=== PATIENT | female | born 1980 | race Caucasian/White ===

== ENCOUNTER 2018-01-24 19:27 | Emergency (ER) | payer OTHER, SELFPAY ==
[2018-01-24 19:33] VITALS: BP 150/82; TEMP 37; O2SAT 99
--- NOTE | 2018-01-24 19:37 | DI.CT_ITS ---
SYMPTOM/DIAGNOSIS: LT TEMPORAL HEMATOMA, FELL ON ICE, HIT HEAD, VOMITING, SHORT TERM MEMORY LOSS NONCONTRAST HEAD CT: A noncontrast cranial CT was performed. The ventricular system is normal in appearance. There is no evidence of intracranial mass effect. A couple of small high density foci are noted in the basal ganglia on the right, these have maximal Hounsfield measurements of about 73 Hounsfield units, consistent with low density calcification versus hemorrhage. No other evidence of acute intracranial hemorrhage is seen. No calvarial fracture. Paranasal sinuses and mastoid air cells appear clear as visualized. The orbital and temporal bone structures appear intact. CONCLUSION: Indeterminate finding in right basal ganglia, calcification versus hemorrhage. Additional evaluation with MRI should be considered to rule out acute intracranial hemorrhage.
--- NOTE | 2018-01-24 19:39 | W.ED.GENAD ---
Discharge Plan Disposition Patient Disposition: HOME Condition: Good Discharge Details Chief Complaint: HeadInjury Clinical Impression: Concussion, Fall Primary Care Provider: Cheryle Young ED Provider: Parker Kohler Home Meds and New Rx's Prescriptions: No Action tsatlxkaibn-mfkhnlreb-jax C-Mn [Glucosamine-Chondroitin Complx] 1 EACH capsule 2 ea PO DAILY RF: 0 vitamin N66-pxrmo acid 1 EACH tablet 1 ea PO DAILY RF: 0 sertraline [Zoloft] 50 MG tablet 50 mg PO DAILY Qty: 90 RF: 4 levothyroxine 88 MCG tablet 88 mcg PO DAILY Qty: 90 RF: 3 budesonide [Pulmicort Flexhaler] 180 MCG aerosol powdr breath activated 360 mcg Inhalation BID 30 Days Qty: 1 RF: 5 levalbuterol tartrate [Xopenex HFA] 1 PUFF HFA aerosol inhaler 2 puff Inhalation Q6H PRN PRN (Reason: Asthma) Qty: 200 RF: 0 Discharge Instructions Instructions: Concussion (ED) Additional Instructions: Please take Tylenol and Motrin as needed for pain. If you notice any vision changes, worsening headache, or dizziness please return immediately. If you notice any worsening of your symptoms, or any new symptoms such as vomiting, diarrhea, fever, chills, shortness of breath, chest pain, numbness, weakness, or fainting , please return immediately to the emergency department for reevaluation. Please follow up with your primary care provider as soon as possible for reassessment and reevaluation. As always, it was a pleasure participating in your medical care today. 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 Patient was on ice when she slipped and hit her left head. Questionable loss of consciousness. Since then she has had a notable headache. Physical exam demonstrates no significant neurologic deficits. Notable hematoma over the left temporal bone. No other red flags on physical exam. Due to the location of the hematoma, the patient's notable pain, and her notable initial symptoms of confusion, and headache we did discuss CT imaging. We discussed the risks and benefits of imaging, and through shared decision making process we will get a CT scan to rule out any acute process. I feel that she is most likely suffering from a concussion, and if CT scan does return negative I feel she can be safely discharged home. 8:23pm CT scan results have returned demonstrates no evidence of acute or cranial process of fracture. The patient is feeling much better at this time. I feel she is suffering from a notable concussion. I feel that she can be safely discharged home, however we had a long discussion regarding red flags for which to immediately return the patient understands. I have extensively reviewed the treatment plan and discharge instructions with the patient and their family. I have addressed all patient concerns at this time. The patient and family was made aware of what symptoms to monitor for that would warrant a return to the emergency department. Discussed the plan with the patient and family, they demonstrate verbal understanding and agreement with our assessment and plan at this time. FINDINGS: Brain: Unremarkable. No hemorrhage. No significant white matter disease. No edema. Ventricles: Unremarkable. No ventriculomegaly. Bones/joints: Unremarkable. No acute fracture. Sinuses: Normal as visualized. No acute sinusitis. Mastoid air cells: Normal as visualized. No mastoid effusion. Soft tissues: Unremarkable. IMPRESSION: Normal examination. HPI General Date/Time Provider Initiated Documentation: 01/24/18 19:28. HPI Narrative: This is a 37-year-old female with a past medical history of thyroid disease, anxiety and depression who is on no blood thinners who presents today for evaluation of fall. Patient states that she was ice skating, slipped and landed hit her left head. She recalls the event but is uncertain if she had a brief loss of consciousness. She was notably confused after the initial fall, however the confusion has improved but she is now developed a notable left-sided headache and hematoma. Patient states that she initially had some blurry vision, and saw funny spots, but denies any dark curtain, eye pain, or blackness in her vision. She states that the symptoms have completely resolved at this point. She also had some initial ringing in her left ear, however this too is resolved. Patient has not taken any Tylenol or Motrin for the alleviation of the pain. She denies any aggravating or modifying factors. She denies any nosebleeds, neck pain, chest pain, or upper extremity pain. She denies any other complaints at this time. Related Data Home Medications Medication Instructions Recorded Confirmed levalbuterol tartrate [Xopenex Hfa] 2 puff INHALATION Q6H PRN PRN #200 11/13/12 01/24/18 inh pogpztiqgzz-rrjxitecc-lfs C-Mn 2 ea PO DAILY 10/07/13 01/24/18 [Glucosamine-Chondroitin Cap] vitamin V04-kigof acid 1 ea PO DAILY 10/07/13 01/24/18 sertraline [Zoloft] 50 mg PO DAILY #90 tab-cap 02/05/17 01/24/18 levothyroxine 88 mcg PO DAILY #90 tab-cap 04/29/17 01/24/18 budesonide [Pulmicort 180mcg] 360 mcg INHALATION BID 30 Days #1 06/11/17 01/24/18 inhaler Previous Rx's Medication Instructions Recorded levalbuterol tartrate [Xopenex Hfa] 2 puff INHALATION Q6H PRN PRN #200 11/13/12 inh sertraline [Zoloft] 50 mg PO DAILY #90 tab-cap 02/05/17 levothyroxine 88 mcg PO DAILY #90 tab-cap 04/29/17 budesonide [Pulmicort 180mcg] 360 mcg INHALATION BID 30 Days #1 06/11/17 inhaler Allergies Allergy/AdvReac Type Severity Reaction Status Date / Time Penicillins Allergy Severe Hives Unverified 01/24/18 19:44 Sulfa (Sulfonamide Allergy Severe Anaphylaxsi Unverified 01/24/18 19:44 Antibiotics) s General Stated Complaint: HeadInjury CARLOS ALBERTO: 3 Review of Systems Review of Systems All systems reviewed & are unremarkable except as noted in HPI and below PFSH Social History Smoking/Tobacco Use Status: Never Surgical History Tonsillectomy and adenoidectomy (~2001) Exam Narrative Exam Narrative: 1.Const: Well-nourished, Well-developed, appearing stated age 2.Eyes: PERRL, no conjunctival injection, and symmetrical lids. 3.ENT: Atraumatic external nose and ears. Moist MM. Neck: Symmetric, trachea midline, No thyromegaly. There is no evidence of raccoon eyes, andrade sign, CSF rhinorrhea, mastoid tenderness, cranial crepitus, hemotympanum, exophthalmos, or hyphema. Patient demonstrates intact dentition with no signs of tooth avulsion or fracture, no signs of jaw deformity, no evidence of a LeFort's fracture, with an intact palate, nose and orbital region. There is no evidence of a nasal septal hematoma. No proptosis. Jaw closes symmetrically. Airway is clear. Patient does demonstrate a notable hematoma over the left temporal frontal region. No evidence of significant osseous deformity. 4.CVS: +S1/S2, No murmurs or gallops. Peripheral pulses 2+ and equal in all extremities. Brisk capillary refill in all extremities. 5.RESP: Unlabored respiratory effort. Clear to auscultation bilaterally. No wheezes rales or rhonchi 6.GI: Soft, Nontender/Nondistended, No hepatosplenomegaly. No guarding or rebound. 7.MSK: No gross deformities or discolorations or lesions. Tolerates full range of motion of extremities without tenderness. All compartments of upper and lower extremities are soft with no tenderness. Vascular exam demonstrates brisk capillary refill and intact pulses in all extremities. Pelvic exam demonstrates a stable pelvis, nontender to lateral compression and palpation of symphysis pubis.. No clinical evidence of significant musculoskeletal trauma. Normocephalic/Atraumatic, Extremities w/o deformity or ttp No cyanosis or clubbing, Normal movement of all extremities. No midline tenderness to palpation over the CTLS spine. Normal ROM in flexion, extension, side bend, and rotation. Patient has +5 out of 5 strength in the lower extremities in dorsiflexion and plantarflexion, knee flexion and extension, hip flexion and extension. There is +2 over 2 dorsalis pedis pulses bilaterally. There is normal sensation to the skin with light touch at the foot, knee, and hip. Normal saddle sensation. Good sensation over the deep sural nerve area bilaterally. Rectal exam deferred. Reflexes are +2 over 4 in the patellar reflex bilaterally. +5 out of 5 strength in the medial, ulnar, radial nerve distribution bilaterally in the hands as well as intact light touch sensation to these dermatomes on the hands 8.Skin: Warm, Dry. No rashes or lesions. 9.Neuro: implementation lead II-XII grossly intact. Sensation grossly intact, no focal neurologic deficits. All 6 cardinal planes of vision are fully intact. No evidence of rotatory or vertical nystagmus. The patient demonstrated a normal iacawi-rbhs-jgxbsg, good dexterity. There was no evidence of dysdiadochokinesia. Patient was able to ambulate without difficulty. There was no wide-based gait. Romberg, and eijq-nq-mxwm are both normal on testing. Sensation was intact bilaterally as well as muscle strength bilaterally for all extremities. Patient was able to verbalize butter cup with no slurring, or miss pronunciation. 10.Psych: (AAO) x3. Appropriate mood and affect Course Vital Signs Temperature 37 C 01/24/18 19:33 Blood Pressure 150/82 H 01/24/18 19:33 Pulse Oximetry 99 01/24/18 19:33 Temperature 37 C 01/24/18 19:33 Temperature Source Skin 01/24/18 19:33 Blood Pressure 150/82 H 01/24/18 19:33 Blood Pressure Position Sitting 01/24/18 19:33 Pulse Oximetry 99 01/24/18 19:33 Oxygen Delivery Method Room Air 01/24/18 19:33 Oxygen Flow Rate 0 01/24/18 19:33 Pain Level 3 01/24/18 19:33
[2018-01-24] MEDS: Ibuprofen 800 MG TAB PO (19:43)
--- NOTE | 2018-01-24 19:49 | ED.GENADUL_ITS ---
Discharge Plan Disposition Patient Disposition: HOME Condition: Good Discharge Details Chief Complaint: HeadInjury Clinical Impression: Concussion, Fall Primary Care Provider: Cheryle Young ED Provider: Parker Kohler Home Meds and New Rx's Prescriptions: No Action sxseaiwfans-ajpwypfre-obs C-Mn [Glucosamine-Chondroitin Complx] 1 EACH capsule 2 ea PO DAILY RF: 0 vitamin V98-dekfh acid 1 EACH tablet 1 ea PO DAILY RF: 0 sertraline [Zoloft] 50 MG tablet 50 mg PO DAILY Qty: 90 RF: 4 levothyroxine 88 MCG tablet 88 mcg PO DAILY Qty: 90 RF: 3 budesonide [Pulmicort Flexhaler] 180 MCG aerosol powdr breath activated 360 mcg Inhalation BID 30 Days Qty: 1 RF: 5 levalbuterol tartrate [Xopenex HFA] 1 PUFF HFA aerosol inhaler 2 puff Inhalation Q6H PRN PRN (Reason: Asthma) Qty: 200 RF: 0 Discharge Instructions Instructions: Concussion (ED) Additional Instructions: Please take Tylenol and Motrin as needed for pain. If you notice any vision changes, worsening headache, or dizziness please return immediately. If you notice any worsening of your symptoms, or any new symptoms such as vomiting, diarrhea, fever, chills, shortness of breath, chest pain, numbness, weakness, or fainting , please return immediately to the emergency department for reevaluation. Please follow up with your primary care provider as soon as possible for reassessment and reevaluation. As always, it was a pleasure participating in your medical care today. 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 Patient was on ice when she slipped and hit her left head. Questionable loss of consciousness. Since then she has had a notable headache. Physical exam demonstrates no significant neurologic deficits. Notable hematoma over the left temporal bone. No other red flags on physical exam. Due to the location of the hematoma, the patient's notable pain, and her notable initial symptoms of confusion, and headache we did discuss CT imaging. We discussed the risks and benefits of imaging, and through shared decision making process we will get a CT scan to rule out any acute process. I feel that she is most likely suffering from a concussion, and if CT scan does return negative I feel she can be safely discharged home. 8:23pm CT scan results have returned demonstrates no evidence of acute or cranial process of fracture. The patient is feeling much better at this time. I feel she is suffering from a notable concussion. I feel that she can be safely discharged home, however we had a long discussion regarding red flags for which to immediately return the patient understands. I have extensively reviewed the treatment plan and discharge instructions with the patient and their family. I have addressed all patient concerns at this time. The patient and family was made aware of what symptoms to monitor for that would warrant a return to the emergency department. Discussed the plan with the patient and family, they demonstrate verbal understanding and agreement with our assessment and plan at this time. FINDINGS: Brain: Unremarkable. No hemorrhage. No significant white matter disease. No edema. Ventricles: Unremarkable. No ventriculomegaly. Bones/joints: Unremarkable. No acute fracture. Sinuses: Normal as visualized. No acute sinusitis. Mastoid air cells: Normal as visualized. No mastoid effusion. Soft tissues: Unremarkable. IMPRESSION: Normal examination. HPI General Date/Time Provider Initiated Documentation: 01/24/18 19:28 . HPI Narrative: This is a 37-year-old female with a past medical history of thyroid disease, anxiety and depression who is on no blood thinners who presents today for evaluation of fall. Patient states that she was ice skating, slipped and landed hit her left head. She recalls the event but is uncertain if she had a brief loss of consciousness. She was notably confused after the initial fall, however the confusion has improved but she is now developed a notable left-sided headache and hematoma. Patient states that she initially had some blurry vision, and saw funny spots, but denies any dark curtain, eye pain, or blackness in her vision. She states that the symptoms have completely resolved at this point. She also had some initial ringing in her left ear, however this too is resolved. Patient has not taken any Tylenol or Motrin for the alleviation of the pain. She denies any aggravating or modifying factors. She denies any nosebleeds, neck pain, chest pain, or upper extremity pain. She denies any other complaints at this time. Related Data Home Medications Medication Instructions Recorded Confirmed levalbuterol tartrate [Xopenex Hfa] 2 puff INHALATION Q6H PRN PRN #200 11/13/12 01/24/18 inh hmcqxuvuonx-hhqjlfptl-jbu C-Mn 2 ea PO DAILY 10/07/13 01/24/18 [Glucosamine-Chondroitin Cap] vitamin D71-bnbnb acid 1 ea PO DAILY 10/07/13 01/24/18 sertraline [Zoloft] 50 mg PO DAILY #90 tab-cap 02/05/17 01/24/18 levothyroxine 88 mcg PO DAILY #90 tab-cap 04/29/17 01/24/18 budesonide [Pulmicort 180mcg] 360 mcg INHALATION BID 30 Days #1 06/11/17 inhaler Previous Rx's Medication Instructions Recorded levalbuterol tartrate [Xopenex Hfa] 2 puff INHALATION Q6H PRN PRN #200 11/13/12 inh sertraline [Zoloft] 50 mg PO DAILY #90 tab-cap 02/05/17 levothyroxine 88 mcg PO DAILY #90 tab-cap 04/29/17 budesonide [Pulmicort 180mcg] 360 mcg INHALATION BID 30 Days #1 06/11/17 inhaler Allergies Allergy/AdvReac Type Severity Reaction Status Date / Time Penicillins Allergy Severe Hives Unverified 01/24/18 19:44 Sulfa (Sulfonamide Allergy Severe Anaphylaxsi Unverified 01/24/18 19:44 Antibiotics) s General Stated Complaint: HeadInjury CARLOS ALBERTO: 3 Review of Systems Review of Systems All systems reviewed & are unremarkable except as noted in HPI and below PFSH Social History Smoking/Tobacco Use Status: Never Surgical History Tonsillectomy and adenoidectomy (~2001) Exam Narrative Exam Narrative: 1.Const: Well-nourished, Well-developed, appearing stated age 2.Eyes: PERRL, no conjunctival injection, and symmetrical lids. 3.ENT: Atraumatic external nose and ears. Moist MM. Neck: Symmetric, trachea midline, No thyromegaly. There is no evidence of raccoon eyes, andrade sign, CSF rhinorrhea, mastoid tenderness, cranial crepitus, hemotympanum, exophthalmos , or hyphema. Patient demonstrates intact dentition with no signs of tooth avulsion or fracture, no signs of jaw deformity, no evidence of a LeFort's fracture, with an intact palate, nose and orbital region. There is no evidence of a nasal septal hematoma. No proptosis. Jaw closes symmetrically. Airway is clear. Patient does demonstrate a notable hematoma over the left temporal frontal region. No evidence of significant osseous deformity. 4.CVS: +S1/S2, No murmurs or gallops. Peripheral pulses 2+ and equal in all extremities. Brisk capillary refill in all extremities. 5.RESP: Unlabored respiratory effort. Clear to auscultation bilaterally. No wheezes rales or rhonchi 6.GI: Soft, Nontender/Nondistended, No hepatosplenomegaly. No guarding or rebound. 7.MSK: No gross deformities or discolorations or lesions. Tolerates full range of motion of extremities without tenderness. All compartments of upper and lower extremities are soft with no tenderness. Vascular exam demonstrates brisk capillary refill and intact pulses in all extremities. Pelvic exam demonstrates a stable pelvis, nontender to lateral compression and palpation of symphysis pubis.. No clinical evidence of significant musculoskeletal trauma. Normocephalic/Atraumatic, Extremities w/o deformity or ttp No cyanosis or clubbing, Normal movement of all extremities. No midline tenderness to palpation over the CTLS spine. Normal ROM in flexion, extension, side bend, and rotation. Patient has +5 out of 5 strength in the lower extremities in dorsiflexion and plantarflexion, knee flexion and extension, hip flexion and extension. There is +2 over 2 dorsalis pedis pulses bilaterally. There is normal sensation to the skin with light touch at the foot, knee, and hip. Normal saddle sensation. Good sensation over the deep sural nerve area bilaterally. Rectal exam deferred. Reflexes are +2 over 4 in the patellar reflex bilaterally. +5 out of 5 strength in the medial, ulnar, radial nerve distribution bilaterally in the hands as well as intact light touch sensation to these dermatomes on the hands 8.Skin: Warm, Dry. No rashes or lesions. 9.Neuro: bobbin collector II-XII grossly intact. Sensation grossly intact, no focal neurologic deficits. All 6 cardinal planes of vision are fully intact. No evidence of rotatory or vertical nystagmus. The patient demonstrated a normal svnwaz-yscp-jrpchh, good dexterity. There was no evidence of dysdiadochokinesia. Patient was able to ambulate without difficulty. There was no wide-based gait. Romberg, and tybl-qp-gppv are both normal on testing. Sensation was intact bilaterally as well as muscle strength bilaterally for all extremities. Patient was able to verbalize butter cup with no slurring, or miss pronunciation. 10.Psych: (AAO) x3. Appropriate mood and affect Course Vital Signs Temperature 37 C 01/24/18 19:33 Blood Pressure 150/82 H 01/24/18 19:33 Pulse Oximetry 99 01/24/18 19:33 Temperature 37 C 01/24/18 19:33 Temperature Source Skin 01/24/18 19:33 Blood Pressure 150/82 H 01/24/18 19:33 Blood Pressure Position Sitting 01/24/18 19:33 Pulse Oximetry 99 01/24/18 19:33 Oxygen Delivery Method Room Air 01/24/18 19:33 Oxygen Flow Rate 0 01/24/18 19:33 Pain Level 3 01/24/18 19:33
--- NOTE | 2018-01-24 20:15 | DI.VRAD_ITS ---
EXAM: CT Head Without Intravenous Contrast EXAM DATE/TIME: 01/24/2018 7:39 PM CLINICAL HISTORY: 37 years old, female; Injury or trauma; Fall TECHNIQUE: Axial computed tomography images of the head/brain without intravenous contrast. Coronal and sagittal reformatted images were created and reviewed. COMPARISON: No relevant prior studies available. FINDINGS: Brain: Unremarkable. No hemorrhage. No significant white matter disease. No edema. Ventricles: Unremarkable. No ventriculomegaly. Bones/joints: Unremarkable. No acute fracture. Sinuses: Normal as visualized. No acute sinusitis. Mastoid air cells: Normal as visualized. No mastoid effusion. Soft tissues: Unremarkable. IMPRESSION: Normal examination. Dictated and Authenticated by: Marcos Hahn MD. Ordering:GIULIANA CORDOVA MD
[2018-01-24 20:45] VITALS: BP 126/74; PULSE 54; RESP 15; TEMP 37.2; O2SAT 98
--- NOTE | 2018-01-26 19:05 | W.ED.FU ---
Discussed with radiologist Dr. Lagos -states on his re-read of CT head today there were high density spots noted in the basal ganglia on the right which are likely calcifications but could be possibly hemorrhage. Recommends a nonemergent MRI if pt status improving. Patient was called at home to notify her of these findings and she states she is overall doing better. I recommended she call her primary care doctor tomorrow to schedule a follow-up appointment for reevaluation and for referral for MRI brain for further evaluation. Patient was instructed to return here immediately with any worsening or new concerning symptoms.
== END 2018-01-24 20:58 | disposition home or self-care (01) ==
LOC: ER 20:57
PROVIDERS: Emergency Provider Student in an Organized Health Care Education/Training Program; PCP Family Medicine
DX: S06.0X9A Concussion with loss of consciousness of unspecified duration, initial encounter (principal); S00.03XA Contusion of scalp, initial encounter; W00.0XXA Fall on same level due to ice and snow, initial encounter; W01.198A Fall on same level from slipping, tripping and stumbling with subsequent striking against other object, initial encounter; Y93.21 Activity, ice skating; R51 Headache; R41.0 Disorientation, unspecified
CPT/HCPCS: 99284; 70450

== ENCOUNTER 2018-01-27 10:24 | Outpatient (CLI) | payer OTHER, SELFPAY ==
--- NOTE | 2018-01-27 11:09 | DI.MRI_ITS ---
SYMPTOM/DIAGNOSIS: BASAL GANGLION DISORDER HEAD INJURY 625.9, S09.90XA BRAIN MRI: 01/27/18 MRI examination of the brain was performed according to the usual protocol. Ventricular system is normal in appearance. No signal abnormality identified in the brain. CT showed a right basal ganglia high attenuation focus indeterminate for calcification vs hemorrhage. Susceptibility weighted imaging shows no evidence of acute intracranial hemorrhage. Diffusion weighted imaging shows no evidence of infarct. The orbital and temporal bone structures appear intact. There is normal flow void in the [place] vasculature. Pituitary appears normal. CONCLUSION: Negative brain MRI. No evidence of acute intracranial hemorrhage.
== END 2018-01-27 10:44 ==
PROVIDERS: PCP Family Medicine; Visit Provider Family Medicine
DX: G23.8 Other specified degenerative diseases of basal ganglia (principal); S09.90XA Unspecified injury of head, initial encounter
CPT/HCPCS: 70551

== ENCOUNTER 2018-07-10 11:12 | Outpatient (CLI) | payer OTHER, SELFPAY ==
[2018-07-10 12:46] LABS: TSH (W/Ref FT4) 1.04 uIU/mL (0.358-3.74)
== END 2018-07-10 11:32 ==
PROVIDERS: PCP Family Medicine; Visit Provider Psychiatry & Neurology Neurology
DX: E03.9 Hypothyroidism, unspecified (principal)
CPT/HCPCS: 36415; 84443

== ENCOUNTER 2019-03-06 07:38 | Outpatient (REF) | payer OTHER, SELFPAY ==
[2019-03-09 11:28] LABS: FREE T4 0.91 ng/dL (0.76-1.46); TSH 0.92 uIU/mL (0.36-3.74)
[2019-03-09 22:09] LABS: T3,Free 3.4 pg/mL (2.8-5.3)
[2019-03-10 11:02] LABS: Calculated LDL 130 mg/dL; Cholesterol 199 mg/dL (<200); HDL Cholesterol 54 mg/dL (40-60); Triglyceride 73 mg/dL (<150)
[2019-03-12 10:53] LABS: BUN 10 mg/dL (10-26); CO2 Total 26 mEq/L (22-32); Chloride 104 mEq/dL (96-110); Glucose 85 mg/dL (70-100); Potassium 3.8 mEq/L (3.5-5.0); Sodium 139 mEq/L (136-145); eGFR 115 (>60)
[2019-03-12 10:54] LABS: ALT 17 U/L (<35); AST 23 U/L (15-46); Albumin 4.6 g/dL (3.4-4.9); Alkaline Phosphatase 40 U/L (38-126); Calcium 9.6 mg/dL (8.5-10.5); Total Protein 7.4 g/dL (6.3-8.2)
== END 2019-03-06 07:58 ==
LOC: LBN 07:38
PROVIDERS: PCP Family Medicine; Visit Provider Family Medicine
DX: E03.9 Hypothyroidism, unspecified (principal)
CPT/HCPCS: 80053; 80061; 84439; 84443; 84481

== ENCOUNTER 2019-12-14 18:16 | Outpatient (REF) | payer OTHER, SELFPAY ==
[2019-12-14 18:59] LABS: Vitamin B12 1124 pg/mL (193-986)
== END 2019-12-14 18:36 ==
LOC: LBN 18:16
PROVIDERS: PCP Family Medicine; Visit Provider Family Medicine
DX: E03.9 Hypothyroidism, unspecified (principal); E53.8 Deficiency of other specified B group vitamins
CPT/HCPCS: 82607; 84443

== ENCOUNTER 2020-11-03 02:04 | Outpatient (CLI) | payer OTHER, SELFPAY ==
--- NOTE | 2020-11-03 | DI.RAD_ITS ---
Exam(s) XR FOOT LT COMPLETE EXAM: XR FOOT LT COMPLETE CLINICAL HISTORY: INJURY LT FOOT, S99.922A, SWELLING TOP OF LT FOOT, MIDLINE X 6 WKS TECHNIQUE: COMPARISON: No exams were available for comparison FINDINGS: Three views were obtained. There is no evidence of acute fracture or dislocation. IMPRESSION: RADIATION DOSE DELIVERED: Total DLP
== END 2020-11-03 02:24 ==
PROVIDERS: Visit Provider Family Medicine
DX: S99.922A Unspecified injury of left foot, initial encounter (principal); M79.89 Other specified soft tissue disorders; X58.XXXA Exposure to other specified factors, initial encounter
CPT/HCPCS: 73630

== ENCOUNTER 2020-12-01 02:00 | Outpatient (CLI) | payer OTHER, SELFPAY ==
[2020-12-01 16:29] LABS: Abs Immature Grans 0.01 10^3/uL (0.0-0.06); Absolute Basophil Count 0.03 10^3/uL (0.0-0.2); Absolute Eosinophil Count 0.17 10^3/uL (0.0-0.7); Absolute Lymphocyte Count 1.89 10^3/uL (1.2-3.4); Absolute Monocyte Count 0.62 10^3/uL (0.1-0.8); Absolute Neutrophil Count 3.18 10^3/uL (1.2-6.7); Basophils % 0.5; Eosinophils % 2.9; HGB 13.7 g/dL (11.2-15.7); Immature Grans % 0.2; MCH 30.9 pg (27.0-33.0); MCHC 32.6 % (32.0-36.0); MCV 94.6 fL (80-95); MPV 9.7 fL (8.0-11.0); Monocytes % 10.5; Neutrophils % 53.9; Nucleated RBC 0 %; Platelet Count 229 10^3/uL (130-400); RBC 4.44 10^6/uL (3.93-5.22); RDW-SD 41.5 fL
[2020-12-01 18:13] LABS: ALT 27 U/L (14-59); AST 16 U/L (15-37); Alkaline Phosphatase 54 U/L (46-116); Anion Gap 6.3 mmol/L (3-11); BUN 8 mg/dL (7-18); CO2 31.7 mmol/L (21.0-32.0); CREATININE 0.7 mg/dL (0.55-1.02); Calcium 9.1 mg/dL (8.5-10.1); Chloride 104 mmol/L (98-107); FREE T4 1.04 ng/dL (0.76-1.46); Glucose 91 mg/dL (74-106); Potassium 3.8 mmol/L (3.5-5.1); Sodium 142 mmol/L (136-145); TSH 0.71 uIU/mL (0.36-3.74); Total Protein 7.1 g/dL (6.4-8.2)
[2020-12-01 18:28] LABS: Calculated LDL 142 mg/dL (<100); Cholesterol 212 mg/dL (<200); HDL Cholesterol 50 mg/dL (40-60); Triglyceride 104 mg/dL (<150)
== END 2020-12-01 02:01 | disposition home or self-care (01) ==
LOC: LBO 02:00
PROVIDERS: Visit Provider Family Medicine
DX: E03.9 Hypothyroidism, unspecified (principal); Z13.220 Encounter for screening for lipoid disorders
CPT/HCPCS: 36415; 80053; 80061; 84439; 84443; 85025

== ENCOUNTER → 2021-07-25 01:24 | Outpatient (CLI) | payer OTHER, SELFPAY ==
--- NOTE | 2021-07-25 | DI.MAMMO_ITS ---
Exam(s) MAMMO SCREENING EXAM: MAMMO SCREENING CLINICAL HISTORY: SCREENING, Z12.31. TECHNIQUE: Bilateral full field digital CC and MLO mammographic images were obtained with 3D tomosyn thesis and utilizing computer aided detection (CAD). COMPARISON: None. This is a baseline mammogram on this 40-year-old patient. FINDINGS: The fibroglandular tissue pattern is moderately dense There are nodular densities in the left breast. The largest is located posteriorly, measuring 1.6 x 1.5 cm, this located 6 cm in the nipple the CC view. Another smaller nodule seen posteromedially in the left breast on the CC view, measuring 4 by 4 millimeters, approximately 7 cm in from the nipple. This may be benign lymph node. The opposite-right breast there is a 3.5 x 3 findings 5 millimeter nodular density located 5 cm in fr om the nipple on the 3D MLO view. There are no malignant-appearing microcalcification groups in either breast and there is no [employer] ural distortion or skin thickening-traction. IMPRESSION: Dense fibroglandular tissue. Left breast nodules, the largest being posteriorly in left breast measu ring approximately 16 x 15 millimeters. Also smaller nodules in the left and right breasts. Spot co mpression views bilaterally recommended. Also bilateral breast ultrasound BI-RADS Category 0 - Assessment Incomplete: Need additional imaging evaluation Breast Density - Category C - Heterogeneously dense Breast density Category C or D implies that the patient has dense breast tissue. Dense breast tissue can make it harder to find cancer on a mammogram. Dense breast tissue is also associated with an incr eased risk of breast cancer. This information about the result of the mammogram report was provided to the patient to raise their awareness. Use this report when you speak with the patient about their risks for breast cancer, which includes their family history. At that time, you may recommend additional screening tests (Ultrasoun d or MRI) as these tests may add significant information. A negative radiographic report should not delay biopsy if a dominant or clinically suspicious mass is present. Up to ten percent of cancers are not identified on mammography. A negative report may reinforce clinical impression. Adenosis and dense breasts may obscure an underlying neoplasm. False positive reports average 6 to 10%. Patient will receive a letter notifying them of these results.
== END ==
PROVIDERS: Visit Provider Physician Assistant Medical
DX: Z12.31 Encounter for screening mammogram for malignant neoplasm of breast (principal); R92.8 Other abnormal and inconclusive findings on diagnostic imaging of breast
CPT/HCPCS: 77063; 77067

== ENCOUNTER → 2021-08-04 00:54 | Outpatient (CLI) | payer OTHER, SELFPAY ==
--- NOTE | 2021-08-04 09:45 | DI.MAMMO_ITS ---
Exam(s) US BREAST LT COMPLETE US BREAST RT COMPLETE MG MAMMO SCREEN CALL BACK BI EXAM: MG MAMMO SCREEN CALL BACK BI CLINICAL HISTORY: F/U ABNL MAMMO, ALEX BREAST NODULES. TECHNIQUE: Craniocaudal and mediolateral oblique spot compression digital Mammography views of the b oth breasts with Tomosynthesis andbilateral breast ultrasound. COMPARISON: MG MG MAMMO SCREENING from 07/25/2021 US US BREAST LT COMPLETE from 08/04/2021 US US BREAST RT COMPLETE from 08/04/2021 FINDINGS: Mammography/Tomosynthesis: Left breast spot compression view: Masses/Architectural Distortion: Persistent 15 millimeter circumsc ribed nodule. Microcalcifictions: No suspicious pleomorphic-type are seen. Skin Thickening/Nipple Retraction: None. Complete left breast US: Echotexture: Normal appearance of the glandular tissue. Shadowing: No suspicious foci. Cyst: 1 x 1.5 x 1 centimeter simple cyst 12 o'clock position 1 cm from nipple. 4 millimeter cyst 8 o 'clock position 4 cm from the nipple. Additional 3 by 4 millimeter cyst 1 o'clock position Solid lesions: None seen. Ductal dilation: None. Right breast spot compression view: Persistent tiny nodule, less prominent when compared with prior. No suspicious calcifications. No skin thickening or nipple retraction. Complete right breast ultrasound: 3 small cysts are noted, less than 1 cm in size.. No suspicious so lid masses. No ductal dilatation. IMPRESSION: 1. Bilateral cysts. No evidence of malignancy is noted. 2. Unless there is more urgent need, follow-up screening mammography is recommended, as per [place] [employer] guidelines. 3. The findings were discussed with the patient on the date of the examination. BI-RADS Category 2 - Benign Findings Breast Density - Category C - Heterogeneously dense A mammogram that demonstrates density of C or D indicates the patient's breast tissue is dense. Dense breast tissue is very common and is not abnormal, but dense breast tissue can make it harder to find cancer on a mammogram. Also, dense breast tissue may increase their breast cancer risk. This informa tion about the result of the mammogram report was provided to the patient to raise their awareness. U se this report when you speak with the patient about their risks for breast cancer, which includes th eir family history. At that time, you may recommend for more screening tests (Ultrasound or MRI) as t aguilar might be useful based on their risk. A negative radiographic report should not delay biopsy if a dominant or clinically suspicious mass is present. Up to ten percent of cancers are not identified on mammography. A negative report may reinforce clinical impression. Adenosis and dense breasts may obscure an underlying neoplasm. False positive reports average 6 to 10%. Patient will receive a letter notifying them of these results.
== END ==
PROVIDERS: Visit Provider Physician Assistant Medical
DX: Z12.31 Encounter for screening mammogram for malignant neoplasm of breast (principal); R92.8 Other abnormal and inconclusive findings on diagnostic imaging of breast; N60.12 Diffuse cystic mastopathy of left breast; N60.11 Diffuse cystic mastopathy of right breast
CPT/HCPCS: 76642; 77063; 77067

== ENCOUNTER 2021-10-02 11:25 | Outpatient (REF) | payer OTHER, SELFPAY ==
[2021-10-03 20:15] LABS: COVID-19 RT-PCR UVMMC Result Positive (Negative)
== END 2021-10-02 11:26 | disposition home or self-care (01) ==
LOC: LBO 11:25
PROVIDERS: Visit Provider Nurse Practitioner Family
DX: Z20.822 Contact with and (suspected) exposure to COVID-19 (principal)
CPT/HCPCS: U0003

== ENCOUNTER 2021-10-03 09:46 | Outpatient (CLI) | payer OTHER, SELFPAY | END 2021-10-03 09:47 | disposition home or self-care (01) | LOC: LBO 09:46 | PROVIDERS: Visit Provider Nurse Practitioner Family ==

== ENCOUNTER 2022-01-01 03:27 | Outpatient (CLI) | payer OTHER, SELFPAY ==
[2022-01-01 07:45] LABS: Abs Immature Grans 0.01 10^3/uL (0.0-0.06); Absolute Basophil Count 0.01 10^3/uL (0.0-0.2); Absolute Eosinophil Count 0.11 10^3/uL (0.0-0.7); Absolute Lymphocyte Count 1.34 10^3/uL (1.2-3.4); Absolute Neutrophil Count 3.22 10^3/uL (1.2-6.7); Basophils % 0.2; Eosinophils % 2.2; HCT 43.1 % (36.0-46.0); Immature Grans % 0.2; Lymphocytes % 26.3; MCH 30.7 pg (27.0-33.0); MCHC 32.5 % (32.0-36.0); MCV 95 fL (80-95); MPV 9.8 fL (8.0-11.0); Monocytes % 7.9; Neutrophils % 63.2; Platelet Count 210 10^3/uL (130-400); RBC 4.56 10^6/uL (3.93-5.22); RDW-SD 42.2 fL; WBC 5.09 10^3/uL (4.4-10.8)
[2022-01-01 08:22] LABS: ALT 34 U/L (14-59); AST 16 U/L (15-37); Albumin 4.1 g/dL (3.4-5.0); Alkaline Phosphatase 49 U/L (46-116); Anion Gap 8.1 mmol/L (3-11); BUN 13 mg/dL (7-18); Bilirubin, Total 1.5 mg/dL (0.2-1.0); CO2 26.9 mmol/L (21.0-32.0); CREATININE 0.7 mg/dL (0.55-1.02); Calcium 9.2 mg/dL (8.5-10.1); Calculated LDL 174 mg/dL (<100); Chloride 103 mmol/L (98-107); Cholesterol 249 mg/dL (<200); Estimated GFR 109.98 (mL/min/1.73m2); Glucose 91 mg/dL (74-106); HDL Cholesterol 61 mg/dL (40-60); Magnesium 2.1 mg/dL (1.8-2.4); Potassium 3.7 mmol/L (3.5-5.1); Sodium 138 mmol/L (136-145); Triglyceride 70 mg/dL (<150)
[2022-01-01 08:42] LABS: FREE T4 0.94 ng/dL (0.76-1.46)
[2022-01-01 17:13] LABS: T3,Free 2.9 pg/mL (2.8-5.3)
== END 2022-01-01 03:28 | disposition home or self-care (01) ==
LOC: LBO 03:27
PROVIDERS: Visit Provider Physician Assistant Medical
DX: R00.2 Palpitations (principal); E03.9 Hypothyroidism, unspecified
CPT/HCPCS: 36415; 80053; 80061; 83735; 84439; 84443; 84481; 85025

== ENCOUNTER 2022-05-21 01:20 | Outpatient (CLI) | payer OTHER, SELFPAY ==
--- NOTE | 2022-05-21 13:45 | ETT_ITS ---
APPROVED REPORT Exam: Exercise Treadmill Patient Location: Out-Patient Room/Bed: Stress Nurse: Mary Mota RN Ordering Provider:ZENY HI, Contact Number: [phone] BMI: 23.91 Baseline Rhythm: Sinus Rhythm Comment: occasional PVC's Indications: Palpitations Medical History Medical History: Heart murmur, asthma, chronic restrictive pulmonary disease, anxiety and depression, head injury and concussion, hypothyroidism, HLD Cardiac Medications: metoprolol succinate, levalbuterol tartrate, fluticasone furoate, levothyroxine Allergies: penicillin, sulfa, liothyronine Cardiac Risk Factors: Asthma, family hx, HLD Previous Cardiac Procedures: None Pretest Chest Pain Characteristics: intermittent palpitations Exercise History: Sedentary Physical Disabilities: None Lung Sounds: Clear to auscultation Heart Sounds: Regular Stress Test Details Test: Exercise stress testing was performed using a Oumar protocol. Rest Stress HR Resting HR Supine: 62 bpm Max Heart Rate (APMHR): 177 bpm Resting HR Standin bpm Target HR (85% APMHR): 150 bpm Max HR Achieved: 156 bpm % of APMHR: 88 Recovery HR: 86 bpm HR response to stress: Normal HR response to stress Comment: Metoprolol succinate held for 30 hours prior to test BP Resting BP Supine: 115/80 mmHg Resting BP Standin/80 mmHg Max BP: 132/72 mmHg Recovery BP: 110/70 mmHg BP response to stress: Normal blood pressure response to stress. ECG Resting ECG: Sinus Rhythm Ectopy: Occasional PVC's Comment: inverted T wave in lead V2. Stress ECG: Sinus Tachycardia ST Change: Horizontal ST depression, Upsloping ST depression Lead(s): inferior and lateral Stage: [address] Deviation: 2 mm Arrhythmia: None Recovery ECG: Sinus Rhythm Recovery ST Change: No significant ST segment changes noted Recovery Arrhythmia: Occasional PVC's Clinical Reason for Termination: Fatigue, Dyspnea Stress Symptoms: General Fatigue, Dyspnea Exercise duration: 10 min33 sec Highest Stage Reached: Stage 4: 4.2 mph at 16% grade. Exercise capacity: 12.73 METs Angina Score: None Leon Treadmill Score: 10 Rate Pressure Product: [id number] Stress ECG Conclusion 1. The resting electrocardiogram showed poor R wave progression, RSR prime in V1 and V2 2. Patient exercised on the Oumar protocol completed a workload of 12.73 METS 3. Normal heart rate and blood pressure response to exercise. Patient achieved 88% of predicted hear t rate for age 4. There was no electrocardiographic evidence of myocardial ischemia Leon Treadmill Score is 10 which is Low risk. Stress Test Summary STAGE Time (mins) Speed (mph) Grade (%) HR BP SpO2 SYMPTOMS METS Supine 62 115/80 97% Standing 67 115/80 97% Intermittent palpitations 1 3 1.7 10 90 126/70 97% 4.5 2 6 2.5 12 119 132/70 95% 7 3 9 3.4 14 140 97% 10 4 12 4.2 16 156 97% Mild SOB 13 1 min recovery 121 130/64 97% Mild SOB, Intermittent palpitations 3 min recovery 79 118/68 97% SOB resolved 6 min recovery 86 110/70 97% Patient reported feeling palpitation during rest and recovery period when PVC occurred.
== END 2022-05-21 01:40 ==
LOC: DI 01:21
PROVIDERS: Visit Provider Internal Medicine
DX: R00.2 Palpitations (principal)
CPT/HCPCS: 93017

== ENCOUNTER 2022-07-16 03:13 | Outpatient (CLI) | payer OTHER, SELFPAY ==
[2022-07-16 16:11] LABS: Abs Immature Grans 0.02 10^3/uL (0.0-0.06); Absolute Basophil Count 0.03 10^3/uL (0.0-0.2); Absolute Eosinophil Count 0.09 10^3/uL (0.0-0.7); Absolute Lymphocyte Count 2.11 10^3/uL (1.2-3.4); Absolute Monocyte Count 0.46 10^3/uL (0.1-0.8); Basophils % 0.5; Eosinophils % 1.5; HCT 41.2 % (36.0-46.0); HGB 13.8 g/dL (11.2-15.7); Immature Grans % 0.3; Lymphocytes % 35.7; MCH 31.4 pg (27.0-33.0); MCHC 33.5 % (32.0-36.0); MCV 94 fL (80-95); MPV 9.6 fL (8.0-11.0); Monocytes % 7.8; Neutrophils % 54.2; Platelet Count 243 10^3/uL (130-400); RDW 12.3 % (11.7-14.6); RDW-SD 42.5 fL; WBC 5.91 10^3/uL (4.4-10.8)
[2022-07-16 18:08] LABS: ESR 4 mm/hr (0-20)
[2022-07-16 20:12] LABS: ALT 26 U/L (14-59); AST 17 U/L (15-37); Alkaline Phosphatase 63 U/L (46-116); BUN 14 mg/dL (7-18); Bilirubin, Total 0.9 mg/dL (0.2-1.0); C-Reactive Protein 0.09 mg/dL (0.0-0.3); CREATININE 0.8 mg/dL (0.55-1.02); Chloride 105 mmol/L (98-107); Glucose 102 mg/dL (74-106); Potassium 3.8 mmol/L (3.5-5.1); Sodium 141 mmol/L (136-145); TSH 0.94 uIU/mL (0.36-3.74)
[2022-07-16 20:27] LABS: T4 8.7 ug/dL (4.7-13.3)
[2022-07-17 18:18] LABS: T3, Total 117 ng/dL (97-169)
[2022-07-17 22:31] LABS: FSH 8.1 mIU/mL (See Note)
[2022-07-17 22:44] LABS: Thyroglobulin Antibody <15 U/mL (<=60); Thyroperoxidase Antibody <28 U/mL (<=60)
== END 2022-07-16 03:14 | disposition home or self-care (01) ==
PROVIDERS: Visit Provider Obstetrics & Gynecology
DX: R53.83 Other fatigue (principal); R00.2 Palpitations; E03.9 Hypothyroidism, unspecified; D53.1 Other megaloblastic anemias, not elsewhere classified; N91.1 Secondary amenorrhea
CPT/HCPCS: 36415; 80053; 85652; 86376; 83001; 84436; 84443; 84480; 85025; 86140

== ENCOUNTER 2022-11-27 08:29 | Emergency (ER) | payer OTHER, SELFPAY ==
--- NOTE | 2022-11-27 08:30 | RT.EKG_ITS ---
APPROVED REPORT Exam: Resting ECG Reason for Exam: weakness Patient Location: E HR:59 bpm ECG Measurements Heart Rate 59 AXIS MT 127 P -15 QRSd 68 QRS 61 QT 422 T 51 QTc 419 Conclusion Sinus bradycardia...rate< 60 ST elev, probable normal early repol pattern...ST elevation, age<55
--- NOTE | 2022-11-27 08:30 | DI.CT_ITS ---
Exam(s) CT HEAD WO EXAM: CT HEAD WO CLINICAL HISTORY: sudden onset of headache. TECHNIQUE: Imaging Protocol: Axial computed tomography images with coronal and sagittal reformatted images were created and reviewed COMPARISON: CT CT HEAD WO from 01/24/2018 FINDINGS: Ventricles and Extra axial spaces: Normal in size and morphology for the patient's age. Hemorrhage: None. Cerebral parenchyma: Normal. There are stable basal gangliar calcifications. Midline shift: None. Brainstem/Cerebellum: Normal. Calvarium: Normal. Visualized Paranasal sinuses/Mastoids: Clear. Soft Tissues: Unremarkable. IMPRESSION: 1. No acute intracranial process. 2. Findings were discussed with the emergency department at 8:57 a.m. on 11/27/2022. RADIATION DOSE DELIVERED: 735.12mGy.cm Total DLP DATA REPOSITORY: All CT scans at this facility are submitted to the National Radiology Data Registry (NRDR) Dose Index Registry (DIR) with the [employer] (ACR). RADIATION OPTIMIZATION: All CT scans at this facility use at least one of these dose optimization te chniques: automated exposure control; mA and/or kV adjustment per patient size (includes targeted exa ms where dose is matched to clinical indication); or iterative reconstruction.
[2022-11-27 08:32] VITALS: BP 163/96; PULSE 66; RESP 18; TEMP 36.8; O2SAT 99
--- NOTE | 2022-11-27 08:46 | W.ED.GENAD ---
Discharge Plan Disposition Patient Disposition: Home Discharge Details Clinical Impression: Headache Primary Care Provider: Amina,Local ED Provider: Melinda Mejía Home Meds and New Rx's Prescriptions: New prochlorperazine maleate [Compazine] 10 mg tablet 10 mg PO Q8H PRNQty: 10 0RF Continued fluticasone furoate-vilanterol [Breo Ellipta] 200-25 mcg/dose blister with device 1 inh IH DAILY cholecalciferol (vitamin D3) 3,000 unit tablet 5,000 unit PO DAILY Glucosamine-Chondroitin Complx 1 EACH capsule 2 ea PO DAILY vitamin R84-pxebu acid 1 EACH tablet 1 ea PO DAILY levothyroxine 88 mcg tablet 88 mcg PO DAILY Qty: 90 3RF Patient Comments: no longer taking sertraline 100 mg tablet 50 mg PO DAILY Qty: 90 3RF levalbuterol tartrate [Xopenex HFA] 1 PUFF HFA aerosol inhaler 2 puff Inhalation Q6H PRN PRN (Reason: Asthma) Qty: 200 0RF thyroid (pork) [De Beque Thyroid] 60 mg Tablet 60 mg PO DAILY metoprolol tartrate 25 mg tablet 25 mg PO PRN PRN Patient Comments: Take 1 tablet by mouth twice a day Discharge Instructions Instructions: General Headache (ED) Additional Instructions: Please follow-up with Dr. Lanier, your MRI looks good, there was a small area that the radiologist did not think was concerning for MS or other pathology, but I do recommend following up with neurologist You may take Compazine as needed for headache Regular meals and fluids Your lab tests today are within normal limits Please return earlier should you have new or worsening complaints Referrals: Tiffanie Lanier MD [ [facility] STAFF PHYSICIAN] - Medical Decision Making 42-year-old female presenting with cute onset of headache last evening Had some difficulties with balance which started after the headache last evening denies acute change in symptoms Patient is alert and oriented, pupils equal round reactive to light and accommodation, extraocular muscles intact, cranial nerves II through XII intact, negative [id number], negative heel riley, negative pronator lift, strength and sensation intact distally to all 4 extremities, GCS 15, no visible evidence of trauma, distal pulses intact, no meningismus MRI does not show evidence of significant acute abnormality, small white matter change in the frontal region, refer to neurology for follow-up Patient is alert, oriented, she is feeling symptomatically improved Dr. Lanier's note from 2019 was reviewed, approximately 5 minutes All diagnostic labs were reviewed without significant acute abnormality Nonfocal neurological exam, ambulatory steady gait, discharged home with outpatient referral to neurology Return precautions reviewed and patient expressed understanding HPI General Date/Time Provider Initiated Documentation: 11/27/22 08:40. HPI Narrative: This 42-year-old female with history of hypothyroidism, migraine headaches, postconcussive syndrome presents for report of cute onset of headache pressure last evening which is since improved today but patient states she feels off balance. She states she did drive to work today and decided to come here as she was scared secondary to her right leg feeling heavy and some difficulties with her balance. She denies any additional trauma. She denies any vision change. She denies any chest pain, shortness of breath, or neck pain. She states her symptoms are similar to when she past had a concussion. Denies chance of . Denies any fevers or chills. Related Data Home Medications Medication Instructions Recorded Confirmed levalbuterol tartrate 45 2 puff inhalation Q6H PRN PRN 11/13/12 11/27/22 mcg/actuation aerosol inhaler Asthma #200 inhalations (Xopenex HFA) [id number] C-Mn 2 ea PO DAILY 10/07/13 11/27/22 capsule (Glucosamine-Chondroitin Complex capsule) vitamin B12 500 mcg-folic acid 400 1 ea PO DAILY 10/07/13 11/27/22 mcg tablet fluticasone furoate 200 1 inh inhalation DAILY 01/27/18 11/27/22 mcg-vilanterol 25 mcg/dose inhalation powder (Breo Ellipta) cholecalciferol (vitamin D3) 75 5,000 unit PO DAILY 03/18/19 11/27/22 mcg (3,000 unit) tablet levothyroxine 88 mcg tablet 88 mcg PO DAILY #90 tab-caps 11/25/19 sertraline 100 mg tablet 50 mg PO DAILY #90 tabs 01/05/20 11/27/22 metoprolol tartrate 25 mg tablet 25 mg PO PRN PRN 11/27/22 11/27/22 prochlorperazine maleate 10 mg 10 mg PO Q8H PRN #10 tabs 11/27/22 tablet (Compazine) thyroid (pork) 60 mg tablet 60 mg PO DAILY 11/27/22 11/27/22 (De Beque Thyroid) Previous Rx's Medication Instructions Recorded levalbuterol tartrate 45 2 puff inhalation Q6H PRN PRN 11/13/12 mcg/actuation aerosol inhaler Asthma #200 inhalations (Xopenex HFA) levothyroxine 88 mcg tablet 88 mcg PO DAILY #90 tab-caps 11/25/19 sertraline 100 mg tablet 50 mg PO DAILY #90 tabs 01/05/20 prochlorperazine maleate 10 mg 10 mg PO Q8H PRN #10 tabs 11/27/22 tablet (Compazine) Allergies Allergy/AdvReac Type Severity Reaction Status Date / Time Penicillins Allergy Severe Hives Unverified 11/27/22 08:42 Sulfa (Sulfonamide Allergy Severe Anaphylaxsi Unverified 11/27/22 08:42 Antibiotics) s liothyronine [From Cytomel] Allergy Intermediate Hives Verified 11/27/22 08:42 General Stated Complaint: Headache CARLOS ALBERTO: 2 PFSH All Active Problems (Updated 11/27/22 @ 12:45 by JAY Phelan) Headache (Acute) Encounter for screening for other viral diseases (Acute) Allergic fungal sinusitis (Acute 02/02/13) Pneumonia (Acute) Status post tonsillectomy and adenoidectomy (Acute) Post concussion syndrome (Chronic) Migraine headache without aura (Chronic) Concussion (Acute) Basal ganglia disorder (Acute) Head injury (Acute) Postnasal drip (Chronic 11/30/13) Idiopathic scoliosis (Chronic 07/30/11) Hypothyroidism (Chronic 09/21/13) Fatigue (Chronic 11/30/13) Depressive disorder (Chronic 07/30/11) Asthma (Chronic 07/30/11) Anxiety disorder (Chronic 07/30/11) Allergic rhinitis due to other allergen (Chronic 12/07/13) Allergy Injections Surgical History Tonsillectomy and adenoidectomy (~2001) Family History Father Heart disease Social History Smoking/Tobacco Use Status: Never Smoking risk assessment performed?: Yes Alcohol Intake: never Drug use: Never Household members: family Number of Children: 2 current occupation: [employer] RN Do you feel safe at home: Yes Do you feel safe in your relationship?: Yes Course Vital Signs Vital signs: Vital Signs Pulse 66 11/27/22 08:32 Respiratory Rate 18 11/27/22 08:32 Blood Pressure 163/96 H 11/27/22 08:32 Pulse Oximetry 99 11/27/22 08:32 Temperature Source Skin 11/27/22 08:32 Pulse 66 11/27/22 08:32 Respiratory Rate 18 11/27/22 08:32 Blood Pressure 163/96 H 11/27/22 08:32 Blood Pressure Position Sitting 11/27/22 08:32 Pulse Oximetry 99 11/27/22 08:32 Oxygen Delivery Method Room Air 11/27/22 08:32 Oxygen Flow Rate 0 11/27/22 08:32 Pain Level 2 11/27/22 08:32
--- NOTE | 2022-11-27 09:00 | DI.MRI_ITS ---
Exam(s) MR BRAIN WO EXAM: MR BRAIN WO CLINICAL HISTORY: gait disturbance, headache, left leg heaviness TECHNIQUE: Multiplanar multisequence MRI of the brain was performed. COMPARISON: No exams were available for comparison FINDINGS: VENTRICLES AND EXTRA AXIAL SPACES: Normal in size and morphology for the patient's age. MIDLINE SHIFT: None. CEREBRAL PARENCHYMA: No focus of restricted diffusion to suggest acute infarct. No space-occupying le vince identified. There is a solitary small focus of increased signal in the white matter in the right frontal lobe. HEMORRHAGE: None. BRAINSTEM/CEREBELLUM: Normal. CALVARIUM: Normal. VISUALIZED PARANASAL SINUSES/MASTOIDS:Clear. [place]: Normal flow void. PITUITARY GLAND: Unremarkable. OTHER FINDINGS: None. IMPRESSION: 1. No evidence of an intracranial mass or acute infarct. 2. Nonspecific small white matter focus in the right frontal lobe. A follow-up examination in 6-12 m [facility] may be obtained for re-evaluation. 3. Findings were discussed with Melinda Mejía at 12:43 p.m. on 11/27/2022. DATA REPOSITORY:
[2022-11-27 09:06] LABS: Absolute Basophil Count 0.02 10^3/uL (0.0-0.2); Absolute Eosinophil Count 0.21 10^3/uL (0.0-0.7); Absolute Monocyte Count 0.48 10^3/uL (0.1-0.8); Absolute Neutrophil Count 2.87 10^3/uL (1.2-6.7); Basophils % 0.4; Eosinophils % 3.9; HCT 43.9 % (36.0-46.0); HGB 14.7 g/dL (11.2-15.7); Lymphocytes % 33.5; MCH 31.3 pg (27.0-33.0); MCHC 33.5 % (32.0-36.0); MCV 93 fL (80-95); MPV 9.8 fL (8.0-11.0); Monocytes % 8.9; Neutrophils % 53.3; Platelet Count 231 10^3/uL (130-400); RDW-SD 41.9 fL; WBC 5.38 10^3/uL (4.4-10.8)
[2022-11-27] MEDS: Normal Saline 1,000 ML 1000 ML IV (09:24)
[2022-11-27] MEDS: Prochlorperazine 10 MG/2 ML VIAL IVP (09:24)
[2022-11-27 09:31] LABS: Troponin I < 50 ng/L (<or=60)
[2022-11-27 09:35] LABS: ALT 27 U/L (14-59); AST 23 U/L (15-37); Alkaline Phosphatase 57 U/L (46-116); Anion Gap 7.4 mmol/L (3-11); BUN 9 mg/dL (7-18); Bilirubin, Total 0.6 mg/dL (0.2-1.0); CO2 27.6 mmol/L (21.0-32.0); CREATININE 0.8 mg/dL (0.55-1.02); Calcium 9.9 mg/dL (8.5-10.1); Chloride 104 mmol/L (98-107); Estimated GFR 93.12 (mL/min/1.73m2); Glucose 88 mg/dL (74-106); Magnesium 2.2 mg/dL (1.8-2.4); Potassium 3.7 mmol/L (3.5-5.1); Sodium 139 mmol/L (136-145); TSH (W/Ref FT4) 1.32 uIU/mL (0.36-3.74); Total Protein 7.6 g/dL (6.4-8.2)
[2022-11-27 10:18] LABS: Bilirubin Negative (Negative); Blood Negative (Negative); Clarity Clear (Clear); Glucose Negative (Negative); Ketones Negative (Negative); Leukocyte Esterase Small (Negative); Nitrite Negative (Negative); Specific Gravity <= 1.005 (1.005-1.025); Urobilinogen 0.2 mg/dL (Up to 0.2)
[2022-11-27 10:26] LABS: Bacteria Rare HPF (Negative); C & S Indicated? No/Sq. Contamination; Casts Negative LPF (Negative); Crystals Negative HPF (Negative); Epithelial Cells Moderate HPF (Negative); Mucus Negative (Negative); RBC Negative HPF (0-2)
--- NOTE | 2022-11-27 12:48 | NUR.NOTE ---
Referral faed to [facility] Neurology for headaches, white matter change on MRI. For first available appt. Nursing Note:
== END 2022-11-27 12:55 | disposition home or self-care (01) ==
PROVIDERS: Emergency Provider Physician Assistant; PCP Family Medicine
DX: R47.89 Other speech disturbances (principal); R51.9 Headache, unspecified; R00.1 Bradycardia, unspecified; R90.89 Other abnormal findings on diagnostic imaging of central nervous system
CPT/HCPCS: 36415; 80053; 81025; 93005; 96374; 99284; 70450; 70551; 81003; 81015; 83735; 84443; 84484; 85025; 93010; J0780

== ENCOUNTER 2024-06-09 01:08 | Outpatient (CLI) | payer OTHER, SELFPAY ==
--- NOTE | 2024-06-09 | DI.MAMMO_ITS ---
Exam(s) MAMMO SCREENING EXAM: MAMMO SCREENING CLINICAL HISTORY: SCREENING, Z12.31 TECHNIQUE: Bilateral full field digital CC and MLO mammographic images were obtained with 3D tomosyn thesis and utilizing computer aided detection (CAD). COMPARISON: Available for comparison. FINDINGS: Masses/Architectural Distortion: There is a new well-circumscribed nodule in the upper outer quadrant of the right breast measuring approximately 1 cm and located 8 cm from the nipple. It is best apprec iated on the exaggerated craniocaudad view. Microcalcifications: No suspicious pleomorphic-type are seen. Skin Thickening/Nipple Retraction: None. IMPRESSION: 1. New well-circumscribed nodule in the upper outer quadrant of the right breast. 2. Spot compression views requested for further evaluation. Targeted right breast ultrasound should b e considered at that time. BI-RADS Category 0 - Incomplete: Need additional imaging evaluation Breast Density - Category C - Heterogeneously dense Breast density category C or D implies that the patient has dense breast tissue. Dense breast tissue is very common and is not abnormal but dense breast tissue can make it harder to find cancer on a ma mmogram. Also, dense breast tissue may increase their breast cancer risk. This information about the result of the mammogram report was provided to the patient to raise their awareness. Use this report when you speak with the patient about their risks for breast cancer, which includes their family hist ory. At that time, you may recommend for more screening tests (Ultrasound or MRI) as they might be us eful based on their risk. A negative radiographic report should not delay biopsy if a dominant or clinically suspicious mass is present. Up to ten percent of cancers are not identified on mammography. A negative report may reinforce clinical impression. Adenosis and dense breasts may obscure an underlying neoplasm. False positive reports average 6 to 10%. Patient will receive a letter notifying them of these results.
== END 2024-06-09 01:28 ==
PROVIDERS: PCP Family Medicine; Visit Provider Hospitalist
DX: Z12.31 Encounter for screening mammogram for malignant neoplasm of breast (principal); R92.333 Mammographic heterogeneous density, bilateral breasts
CPT/HCPCS: 77063; 77067

== ENCOUNTER 2024-06-18 01:13 | Outpatient (CLI) | payer OTHER, SELFPAY ==
--- NOTE | 2024-06-18 | DI.MAMMO_ITS ---
Exam(s) MG MAMMO SCREEN CALL BACK UNI US BREAST RT LIMITED EXAM: MG MAMMO SCREEN CALL BACK UNI CLINICAL HISTORY: F/U ABNL MAMMO, R92.8,NEW NODULE UOQ RT BREAST. TECHNIQUE: Craniocaudal and mediolateral oblique spot compression digital Mammography views of the r ightbreast with Tomosynthesis and right breast ultrasound. COMPARISON: 1April 25 and exams from 2021. FINDINGS: Mammography/Tomosynthesis: Masses: Persistent circumscribed nodule in the posterior upper outer quadrant. Architectural Distortion: None seen. Microcalcifictions: No suspicious pleomorphic-type are seen. Skin Thickening/Nipple Retraction: None. Right breast US: Echotexture: Normal appearance of the glandular tissue. Shadowing: No suspicious foci. Cyst: 11 by 6 by 7 millimeter cyst in the 10 o'clock position of the upper outer quadrant, 8 cm from the nipple. This corresponds to the mammographic nodule. An additional arm the cyst is noted in the retroareolar region measuring 6 millimeters. The other smaller cysts are noted. Solid lesions: None seen. Ductal dilation: None. IMPRESSION: 1. No evidence of malignancy is noted. Nodule on mammogram corresponds to an 11 millimeter cyst. 2. Unless there is more urgent need, follow-up screening mammography is recommended, as per [place] [employer] guidelines. 3. The findings were discussed with the patient on the date of the examination. BI-RADS Category 2 - Benign Findings Breast Density - Category C - Heterogeneously dense A mammogram that demonstrates density of C or D indicates the patient's breast tissue is dense. Dense breast tissue is very common and is not abnormal, but dense breast tissue can make it harder to find cancer on a mammogram. Also, dense breast tissue may increase their breast cancer risk. This informa tion about the result of the mammogram report was provided to the patient to raise their awareness. U se this report when you speak with the patient about their risks for breast cancer, which includes th eir family history. At that time, you may recommend for more screening tests (Ultrasound or MRI) as t hey might be useful based on their risk. A negative radiographic report should not delay biopsy if a dominant or clinically suspicious mass is present. Up to ten percent of cancers are not identified on mammography. A negative report may reinforce clinical impression. Adenosis and dense breasts may obscure an underlying neoplasm. False positive reports average 6 to 10%. Patient will receive a letter notifying them of these results.
== END 2024-06-18 01:33 ==
LOC: DI 01:14
PROVIDERS: PCP Family Medicine; Visit Provider Hospitalist
DX: Z12.31 Encounter for screening mammogram for malignant neoplasm of breast (principal); R92.8 Other abnormal and inconclusive findings on diagnostic imaging of breast; R92.333 Mammographic heterogeneous density, bilateral breasts; D24.1 Benign neoplasm of right breast
CPT/HCPCS: 76642; 77063; 77067

== ENCOUNTER 2024-09-18 20:27 | Emergency (ER) | payer OTHER, SELFPAY ==
[2024-09-18 20:32] VITALS: BP 113/75; PULSE 68; RESP 20; TEMP 36.4; O2SAT 98
--- NOTE | 2024-09-18 21:04 | W.ED.GENAD ---
Discharge Plan Disposition Patient Disposition: Home Condition: Good Discharge Details Clinical Impression: Laceration of right thumb Primary Care Provider: Ellie Bee ED Provider: Parker Kohler Home Meds and New Rx's Prescriptions: No Action fluticasone furoate-vilanterol [Breo Ellipta] 200-25 mcg/dose blister with device 1 inh IH DAILY cholecalciferol (vitamin D3) 3,000 unit tablet 5,000 unit PO DAILY Glucosamine-Chondroitin Complx 1 EACH capsule 2 ea PO DAILY vitamin D19-jgmbg acid 1 EACH tablet 1 ea PO DAILY sertraline 100 mg tablet 50 mg PO DAILY Qty: 90 3RF levalbuterol tartrate [Xopenex HFA] 1 PUFF HFA aerosol inhaler 2 puff Inhalation Q6H PRN PRN (Reason: Asthma) Qty: 200 0RF thyroid (pork) [[place] Thyroid] 60 mg Tablet 60 mg PO DAILY Discharge Instructions Instructions: Laceration Repair With Stitches ED Additional Instructions: Please keep the area clean and dry. Monitor closely for any redness, drainage or discharge. For nonabsorbable sutures, please return in 7 to 10 days to have the wound reassessed and the sutures removed. If you come back to the emergency department here it will be free of charge for the suture removal. For long-term scar cosmesis, please make sure to avoid any sun to the area for the next year. Apply moisturizer or vitamin E to the area twice daily for the next 12 months for the best chance of wound/scar medication. Please take a daily multivitamin as well as this can help in wound healing. If you notice any worsening of your symptoms, or any new symptoms such as vomiting, diarrhea, fever, chills, shortness of breath, chest pain, numbness, weakness, or fainting , please return immediately to the emergency department for reevaluation. Please follow up with your primary care provider as soon as possible for reassessment and reevaluation. As always, it was a pleasure participating in your medical care today. Referrals: Ellie Bee [Primary Care Provider, Medicine] HPI General Date/Time Provider Initiated Documentation: 09/18/24 20:51. HPI Narrative: 43-year-old female who is right-hand dominant who presents today for evaluation of laceration to her right thumb. She states that she was working with a somewhat dirty utility knife when it unfortunately slipped and lacerated the palmar aspect of her right thumb. She cleaned it, and controlled the bleeding. She did feel notably lightheaded while manipulating the wound. She had no actual syncope though. She does admit to small amount of tingling distally to the laceration. No other complaints. She is uncertain as to when her last tetanus shot was. No other modifying factors. Related Data Home Medications ?Medication ?Instructions ?Recorded ?Confirmed levalbuterol tartrate 45 2 puff inhalation Q6H PRN PRN 11/13/12 09/18/24 mcg/actuation aerosol inhaler Asthma #200 inhalations (Xopenex HFA) [id number]-[id number] C-Mn 2 ea PO DAILY 10/07/13 09/18/24 capsule (Glucosamine-Chondroitin Complex capsule) vitamin B12 500 mcg-folic acid 400 1 ea PO DAILY 10/07/13 09/18/24 mcg tablet fluticasone furoate 200 1 inh inhalation DAILY 01/27/18 09/18/24 mcg-vilanterol 25 mcg/dose inhalation powder (Breo Ellipta) Held on 09/18/24. Instructions: Pt Stopped/Never Started cholecalciferol (vitamin D3) 75 5,000 unit PO DAILY 03/18/19 09/18/24 mcg (3,000 unit) tablet sertraline 100 mg tablet 50 mg (1/2 x 100 mg) PO DAILY #90 01/05/20 09/18/24 tabs thyroid (pork) 60 mg tablet 60 mg PO DAILY 11/27/22 09/18/24 ([place] Thyroid) Previous Rx's ?Medication ?Instructions ?Recorded levalbuterol tartrate 45 2 puff inhalation Q6H PRN PRN 11/13/12 mcg/actuation aerosol inhaler Asthma #200 inhalations (Xopenex HFA) sertraline 100 mg tablet 50 mg (1/2 x 100 mg) PO DAILY #90 01/05/20 tabs Allergies Allergy/AdvReac Type Severity Reaction Status Date / Time Penicillins Allergy Severe Hives Unverified 09/18/24 20:36 Sulfa (Sulfonamide Allergy Severe Anaphylaxsi Unverified 09/18/24 20:36 Antibiotics) s liothyronine (From Cytomel) Allergy Intermediate Hives Verified 09/18/24 20:36 General Stated Complaint: Laceration CARLOS ALBERTO: 4 Exam Narrative Exam Narrative: 1.Const: Well-nourished, Well-developed, appearing stated age 2.Eyes: PERRL, no conjunctival injection, and symmetrical lids. 3.ENT: Atraumatic external nose and ears. Moist MM. Neck: Symmetric, trachea midline, No thyromegaly. 4.CVS: +S1/S2, Peripheral pulses 2+ and equal in all extremities. Brisk capillary refill in all extremities. 5.RESP: Unlabored respiratory effort. Clear to auscultation bilaterally. No wheezes rales or rhonchi 6.GI: Soft, Nontender/Nondistended, No hepatosplenomegaly. No guarding or rebound. 7.MSK: Normocephalic/Atraumatic, Extremities w/o deformity or ttp No cyanosis or clubbing, Normal movement of all extremities. Patient's right thumb demonstrates excellent flexion extension abduction and adduction, intact sensation distally, with brisk capillary refill. 8.Skin: Warm, Dry. Small 1.5 cm laceration on the palmar aspect of the right thumb. 9.Neuro: twist tester II-XII grossly intact. Sensation grossly intact, no focal neurologic deficits. 10.Psych: (AAO) x3. Appropriate mood and affect Course Vital Signs Vital signs: Vital Signs Temperature 36.4 C 09/18/24 20:32 Pulse 68 09/18/24 20:32 Respiratory Rate 20 09/18/24 20:32 Blood Pressure 113/75 09/18/24 20:32 Pulse Oximetry 98 09/18/24 20:32 Temperature 36.4 C 09/18/24 20:32 Pulse 68 09/18/24 20:32 Respiratory Rate 20 09/18/24 20:32 Blood Pressure 113/75 09/18/24 20:32 Blood Pressure Position Sitting 09/18/24 20:32 Pulse Oximetry 98 09/18/24 20:32 Oxygen Delivery Method Room Air 09/18/24 20:32 Oxygen Flow Rate 0 09/18/24 20:32 Procedure Laceration Laceration 1: Date of Procedure: 09/18/24 Time of procedure: 21:55 Provider that performed the procedure: Parker Bolanos Time Out Performed: Yes Patient Consented: Verbally Site: hand Side (If applicable): right Description: linear Depth: simple, single layer Local anesthetic: Lidocaine 1% Amount of anesthesia used (mL): 3 Pre-repair:: wound explored, irrigated extensively and deep structures intact Skin layer closed with: nylon Suture size: 5-0 Number of sutures:: 2 Technique: simple, interrupted Medical Decision Making 43-year-old female who is right-hand dominant who presents today for evaluation of laceration to her right thumb. She states that she was working with a somewhat dirty utility knife when it unfortunately slipped and lacerated the palmar aspect of her right thumb. She cleaned it, and controlled the bleeding. She did feel notably lightheaded while manipulating the wound. She had no actual syncope though. She does admit to small amount of tingling distally to the laceration. No other complaints. She is uncertain as to when her last tetanus shot was. No other modifying factors. Physical exam demonstrates a 1.5 cm laceration to the right thumb on the palmar aspect, with no evidence of significant neurovascular compromise. Will anesthetize area, clean and suture. Patient's thumb was sutured with 2 simple interrupted sutures. She tolerated this well. Patient will be discharged. Tetanus was updated 5 years ago. No indication for update today. I have extensively reviewed the treatment plan and discharge instructions with the patient and their family. I have addressed all patient concerns at this time. The patient and family was made aware of what symptoms to monitor for that would warrant a return to the emergency department. Discussed the plan with the patient and family, they demonstrate verbal understanding and agreement with our assessment and plan at this time. The documentation in this chart was dictated using [employer] dictation software. Please excuse any dictation errors. PFSH All Active Problems (Updated 09/18/24 @ 21:56 by Parker Kohler DO) Laceration of right thumb (Acute) Encounter for screening for other viral diseases (Acute) Allergic fungal sinusitis (Acute 02/02/13) Pneumonia (Acute) Status post tonsillectomy and adenoidectomy (Acute) Post concussion syndrome (Chronic) Migraine headache without aura (Chronic) Concussion (Acute) Basal ganglia disorder (Acute) Head injury (Acute) Postnasal drip (Chronic 11/30/13) Idiopathic scoliosis (Chronic 07/30/11) Hypothyroidism (Chronic 09/21/13) Fatigue (Chronic 11/30/13) Depressive disorder (Chronic 07/30/11) Asthma (Chronic 07/30/11) Anxiety disorder (Chronic 07/30/11) Allergic rhinitis due to other allergen (Chronic 12/07/13) Allergy Injections Surgical History Tonsillectomy and adenoidectomy (~2001) Family History Father Heart disease Social History Smoking/Tobacco Use Status: Never Smoking risk assessment performed?: Yes Alcohol Intake: never Drug use: Never Household members: family Number of Children: 2 current occupation: [employer] RN Do you feel safe at home: Yes Do you feel safe in your relationship?: Yes
[2024-09-18] MEDS: Lidocaine/Epinephri/Tetracaine Topical Gel 3 ML TP (21:37)
== END 2024-09-18 22:11 | disposition home or self-care (01) ==
PROVIDERS: Emergency Provider Student in an Organized Health Care Education/Training Program; PCP Family Medicine
DX: S61.011A Laceration without foreign body of right thumb without damage to nail, initial encounter (principal); W26.0XXA Contact with knife, initial encounter
CPT/HCPCS: 12001

== ENCOUNTER 2025-02-01 13:16 | Outpatient (CLI) | payer OTHER, SELFPAY ==
[2025-02-01 12:02] LABS: Abs Immature Grans 0.01 10^3/uL (0.0-0.06); HCT 41.8 % (36.0-46.0); HGB 13.9 g/dL (11.2-15.7); Immature Grans % 0.2 %; MCH 30.9 pg (27.0-33.0); MCHC 33.3 % (32.0-36.0); MCV 93 fL (80-95); MPV 10.2 fL (8.0-11.0); Platelet Count 228 10^3/uL (130-400); RBC 4.50 10^6/uL (3.93-5.22); RDW 12.2 % (11.7-14.6); RDW-SD 42.1 fL; WBC 6.11 10^3/uL (4.4-10.8)
[2025-02-01 13:01] LABS: TSH 0.50 uIU/mL (0.55-4.78)
[2025-02-01 16:20] LABS: ALT 18 U/L (10-49); AST 21 U/L (<34); Albumin 4.4 g/dL (3.4-5.0); Alkaline Phosphatase 57 U/L (46-116); Anion Gap 8.9 mmol/L (3-11); BUN 11 mg/dL (9-23); Bilirubin, Total 0.80 mg/dL (0.2-1.2); CO2 26.1 mmol/L (20.0-31.0); Calcium 9.2 mg/dL (8.3-10.6); Chloride 106 mmol/L (98-107); Cholesterol 221 mg/dL (<200); Glucose 83 mg/dL (74-106); HDL Cholesterol 59 mg/dL (>40); Potassium 4.1 mmol/L (3.5-5.1); Sodium 141 mmol/L (136-145); Total Protein 7.0 g/dL (5.7-8.2)
== END 2025-02-01 13:17 | disposition home or self-care (01) ==
LOC: LBO 13:16
PROVIDERS: PCP Family Medicine; Visit Provider Hospitalist
DX: R00.2 Palpitations (principal); Z13.1 Encounter for screening for diabetes mellitus; E03.9 Hypothyroidism, unspecified
CPT/HCPCS: 36415; 80053; 80061; 84443; 85025